=== PATIENT | female | born 1990 | race Caucasian/White ===

== ENCOUNTER → 2021-03-04 | Outpatient (REF) | payer OTHER | LOC: M SFHCWAGY 16:44 | PROVIDERS: ATTEND Obstetrics & Gynecology | DX: Z36.85 Encounter for antenatal screening for Streptococcus B (principal) ==

== ENCOUNTER → 2021-03-21 | Outpatient (CLI) | payer OTHER | LOC: M LABSMTC 12:20 | PROVIDERS: ATTEND Specialist | DX: Z01.818 Encounter for other preprocedural examination (principal); Z20.822 Contact with and (suspected) exposure to COVID-19 ==

== ENCOUNTER → 2021-03-28 | Outpatient (CLI) | payer OTHER | LOC: M LABSMTC 12:24 | PROVIDERS: ATTEND Specialist | DX: Z20.822 Contact with and (suspected) exposure to COVID-19 (principal) ==

== ENCOUNTER 2021-04-03 06:56 | Inpatient (IN) | payer OTHER ==
[2021-04-03] VITALS (11 sets, daily range): BP systolic 109–141; BP diastolic 58–79
[~2021-04-03] VITALS: Ht 160 cm; Wt 104.8 kg
[2021-04-03] MEDS ORDERED: PRENTAB9 PO (08:05)
--- NOTE | 2021-04-03 15:12 | HPEPDOC ---
Obstetrical History & Physical General Date of Admission April 03, 2021 at 14:59 History of Present Illness 31yo G1 at 40w6d presents with c/o contractions and SROM. Chief Complaint: Contractions, term, Rupture of membranes Information Provided By: Patient Age: 41 : 1 Care Care: Good Care Dating Final EDC: March 28, 2021 Final EDC by: LMP EGA at Admission: 41 Past Medical History Past Obstetrical History : Past Obstetrical History: Primgravida Past Medical History Surgical History: Tooth extraction Social History Marital Status: Single Family situation: Spouse/partner home Psychosocial History: No pertinent psych hx * Smoker: non-smoker Alcohol: Denies Drugs: denies Allergies Coded Allergies: No Known Allergies (Verified Allergy, Unknown, 04/03/21) Medications Scheduled No.137/Iron/Folic Acd ( Vitamin Tablet) 1 Each Tablet, 1 TAB PO DAILY Physical Examination Physical Examination GENERAL: Alert and oriented times three. BREAST: . ABDOMEN: Gravid and non-tender to touch. FETUS: Is vertex (VTX) by sterile vaginal examination (SVE), fetus is vertex (VTX) by Eleazar. HEART RATE: Regular rate and rhythm. LUNGS: Clear to auscultation (CTA). Vital Signs/I&O Vital Signs Date Time Temp Pulse Resp B/P (MAP) Pulse Ox O2 Delivery O2 Flow Rate FiO2 04/03/21 07:34 98.6 68 16 116/65 (82) Pertinent Laboratoy Data Blood Type: A+ RBC Antibody Screen: Negative HIV: Negative Hepatitis B: Negative Hepatitis C: Negative Rapid Plasma Reagin: Nonreactive Rubella: Immune Chlamydia/Gonorrhea: Negative Group B Streptococcus: Negative Anatomy Ultrasound Estimated Weight (grams): 3900 Vaginal Examination Dilation: 2cm Effacement: 70% Station: -2 (SROM, light mec) Assessment Variability: Moderate Accelerations: Positive Tocometer Contractions: Yes Frequency: regular Assessment/Plan Assessment 31-year-old 1 at 40 weeks 6 days estimated gestational age with spontaneous rupture of membranes Reassuring status Plan Admit and orient. 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 Diet: Regular. Group B Streptococcus (GBS) negative. Labs and intravenous (IV) per unit protocol. Counseled on Pitocin and induction of labor (IOL). Anticipate normal spontaneous delivery (). C-S as appropriate. LORENA ROBB MD. April 03, 2021 15:12
[2021-04-03 15:55] LABS: HEMATOCRIT 41.6 % (36.0-47.0); HEMOGLOBIN 14.2 g/dl (12.0-15.5); MEAN CORPUSCULAR HEMOGLOBIN 30.3 pg (27.0-33.0); MEAN CORPUSCULAR HGB CONC 34.1 g/dl (32.0-36.5); MEAN CORPUSCULAR VOLUME 88.9 fl (80.0-96.0); PLATELET COUNT, AUTOMATED 195 10^3/uL (150-450); RED BLOOD COUNT 4.68 10^6/uL (4.00-5.40); WHITE BLOOD COUNT 14.6 10^3/uL (4.0-10.0)
[2021-04-03] MEDS ORDERED: OXYTOCIN 30 UNITS IN 0.9% NaCl 500ML IV BAG (J2590) As Ordered ONE (19:02)
--- NOTE | 2021-04-03 20:01 | DNPDOC ---
[facility] Delivery Note Delivery Note DATE OF DELIVERY: 04/03/21 TIME OF : 193 GENDER: Male. APGARS: 8 and 9. WEIGHT: 3360 grams or 7 pounds 7 ounces. LACERATIONS: none ANESTHESIA: none ESTIMATED BLOOD LOSS: 200ml COUNTS: 5 laparotomy sponges accounted for prior to after delivery. DELIVERY NOTE: On 04/03/2020 12/14/2026-assisted total a 31-year-old 1 now para 1 had a spontaneous delivery, Apgars 8 and 9. Head was delivered occiput anterior (OA), followed by delivery of the shoulders and corpus. was handed to mom with a good cry. Cord was clamped times two and was cut by support person under my direction. Placenta was then drained and delivered grossly intact. A premixed bag of 500 mL of normal saline with 30 units of Pitocin was then bolused along with uterine massage until the uterus was firm. On inspection, cervix, vagina, perineum was grossly intact and hemostatic. Mom and baby in recovery on stable condition. LORENA ROBB MD. April 03, 2021 20:01
[2021-04-03] MEDS ORDERED: DIBUCAINE 1% OINTMENT 30GM TOP PRN (20:05)
[2021-04-03] MEDS ORDERED: DOCUSATE SODIUM 100MG CAPSULE PO PRN (20:05)
[2021-04-03] MEDS ORDERED: ANUSOL HC CREAM 30GM TOP PRN (20:05)
[2021-04-03] MEDS ORDERED: MEASLES,MUMPS,RUBELLA VACCINE INJ (MMR-II) (90707) SC SCH (20:05)
[2021-04-03] MEDS ORDERED: OXYTOCIN DRIP 30 UNITS in IV 1 EA IV SCH (20:05)
[2021-04-03] MEDS ORDERED: RHOGAM 300 MCG (1500 IU) INJ (J2790) IM SCH (20:05)
[2021-04-03] MEDS ORDERED: MOM 30ML SUSPENSION UDC PO PRN (20:05)
[2021-04-03] MEDS ORDERED: METHYLERGONOVINE MALEATE 0.2 MG TAB PO PRN (20:05)
[2021-04-03] MEDS ORDERED: IBUPROFEN 800 MG TAB PO PRN (20:05)
[2021-04-03] MEDS ORDERED: ACETAMINOPHEN 500 MG TAB PO PRN (20:05)
[2021-04-03] MEDS ORDERED: ACETAMINOPHEN TAB 650MG DOSE (2X325MG) PO PRN (20:05)
[2021-04-03] MEDS ORDERED: IBUPROFEN 600MG TAB PO PRN (20:05)
[2021-04-04 06:00] VITALS: BP 150/73
[2021-04-04] MEDS: PRENATAL VITAMINS CHEWABLE TABLET PO SCH (08:48)
--- NOTE | 2021-04-04 11:56 | IPNPDOC ---
Progress Note Date of Service: April 04, 2021 Day#: 1 Progress Note SUBJECT: Darline is a 31-year-old female who is now a who presented to [facility] in early active labor. She did not receive an epidural. She had an uncomplicated, unmedicated vaginal delivery of a living male. She reports her bleeding has been appropriate, she is eating well, and she is ambulating without an issues. OBJECTIVE: VITAL SIGNS: Within normal limits, afebrile. Alert and oriented times three. Breath sounds clear to auscultation. Abdomen: Fundus firm at U-2. Soft, NTTP. Minimal lochia. ASSESSMENT: Day 1 PLAN: 1. continue supportive nursing care. 2. Anticipate discharge to home tomorrow. 3. Patient may shower and have saline lock out. VS, I&O, 24H, Fishbone Vital Signs/I&O Vital Signs Date Time Temp Pulse Resp B/P (MAP) Pulse Ox O2 Delivery O2 Flow Rate FiO2 04/04/21 06:00 99.4 71 20 150/73 (98) 99 Room Air I&O- Last 24 Hours up to 6 AM 04/04/21 06:00 Output Total 1100 ml Balance -1100 ml Vital Signs Label Value Date Time Patient Temperature 99.3 degrees F 04/03/210 Temperature Source Temporal 04/03/21 2200 Pulse 71 04/03/210 Blood Pressure Assessment 130/70 (90) 04/03/210 Source Automatic Cuff (NIBP) Respiratory Rate 18 bpm 04/03/210 Bedside Pulse Oximetry 96 % 04/03/21 2200 Laboratory Data 24H LABS Laboratory Tests 2 04/03/21 15:07: Serology Scanned Report Hepatitis B Testing 04/03/21 15:40: Nucleated Red Blood Cells % (auto) 0.0 04/03/21 15:41: Syphilis Serology NONREACTIVE CBC/BMP Laboratory Tests 04/03/21 15:40 SAGE MARIE CNM April 04, 2021 11:56
[2021-04-04 18:00] VITALS: BP 136/72
[2021-04-05 06:00] VITALS: BP 131/69
[2021-04-05] MEDS: PRENATAL VITAMINS CHEWABLE TABLET PO SCH (07:45)
[2021-04-05] MEDS ORDERED: ACET-683 PO (08:36)
[2021-04-05] MEDS ORDERED: IBUP80TA PO (08:36)
== END 2021-04-05 15:25 | disposition home or self-care (01) | DRG 560 ==
LOC: M LDO 06:56 → M LDI 14:59 → M OBS 21:45
PROVIDERS: ADMIT Obstetrics & Gynecology; ATTEND Obstetrics & Gynecology
PROC: 10E0XZZ Delivery of Products of Conception, External Approach (ICD-10-PCS; principal; 2021-04-03)
DX: O48.0 Post-term pregnancy (principal); Z3A.40 40 weeks gestation of pregnancy; Z37.0 Single live birth